=== PATIENT | male | born 1930 | race Caucasian/White ===

== ENCOUNTER 2016-12-11 11:38 | Inpatient (IN) | payer MEDICARE ==
[~2016-12-11] VITALS: Ht 182.9 cm; Wt 93.4 kg
[2016-12-11] MEDS ORDERED: ACETAMINOPHEN 325 MG TAB PO PRN (12:00)
[2016-12-11 13:16] LABS: ADD SCAN DIFF NO
[2016-12-11 13:19] LABS: BASOPHILS % 0.3 % (0.0-2.0); EOSINOPHILS # 0.3 10^3/ul (0.0-0.5); EOSINOPHILS % 4.4 % (0.0-7.0); HEMATOCRIT 43.5 % (42.0-52.0); LYMPHOCYTES % 12.2 % (15.0-51.0); MEAN CORPUSCULAR HEMOGLOBIN 28.6 pg (29.0-33.0); MEAN CORPUSCULAR HGB CONC 32.2 g/dl (32.0-37.0); MEAN CORPUSCULAR VOLUME 88.8 fl (82.0-101.0); MEAN PLATELET VOLUME 10.6 fl (7.4-10.4); MONOCYTE # 0.8 10^3/ul (0.3-0.9); MONOCYTES % 9.9 % (0.0-11.0); NEUTROPHIL # 5.7 10^3/ul (1.6-7.5); NEUTROPHILS % 72.9 % (39.0-77.0); PLATELET COUNT 142 10^3/UL (140-415); RED CELL DISTRIBUTION WIDTH 14.5 % (11.5-14.5); WHITE BLOOD COUNT 7.8 10^3/ul (4.8-10.8)
--- NOTE | 2016-12-11 13:31 | RADRPT ---
PROCEDURE: XR Chest 1 View. CLINICAL INDICATION: Abnormal breath sounds, abdominal pain. TECHNIQUE: AP view of the chest was obtained. COMPARISON: None. FINDINGS: The cardiomediastinal silhouette is within normal limits. Left-sided dual chamber pacemaker has its leads over the heart. Lungs are hyperexpanded. Retrocardiac opacity is identified. Diffuse mild i nterstitial prominence is seen in both lungs. Subsegmental atelectasis is noted in the right lower lobe. There scoliosis, convex to the right is seen. Diffuse osteopenia is noted. Degenerative hernandez ges are seen in the shoulders. IMPRESSION: Hyperexpanded lungs with diffuse mild interstitial prominence in both lungs. Interstitial prominenc e could be chronic. Findings could reflect COPD. Retrocardiac opacity that may reflect left lower lobe atelectasis or infiltrate combined with small pleural effusion. Subsegmental atelectasis in the right lower lobe. Severe scoliosis. RPTAT: AA .Geronimo Mccartney MD, MD Date Time Electronically viewed and signed by .Geronimo Mccartney MD, on 12/11/2016 13:31 .P/
[2016-12-11 13:36] LABS: INR 0.97; PROTIME 12.9 Sec (12.2-14.2)
--- NOTE | 2016-12-11 13:37 | RADRPT ---
PROCEDURE: XR Elbow 3 Views. CLINICAL INDICATION: Elbow pain and trauma TECHNIQUE: AP, lateral and oblique views of the left elbow performed. COMPARISON: None. FINDINGS: Fracture through the proximal ulna, just distal to the coronoid process is identified. 2 fixations pins are seen across this fracture site. Moderate distraction of the fracture fragments is observed . Medial and lateral fixation plates are identified across poorly visualized, healing distal humeru s fractures. A nondisplaced fracture through the lateral aspect of the coronoid process is best seen on the AP image. No gross destructive bony lesions are seen. Interosseous spaces appear preserved . The soft tissues are grossly unremarkable. IMPRESSION: Fracture through the proximal ulna, just distal to the coronoid process. 2 fixation pins project ac ross the fracture site. However moderate distraction of the fracture fragments is observed. This c ould reflect the patient's baseline after fixation surgery or could reflect traumatic increase in fr acture fragment distraction. Outside, prior films for comparison could be helpful. Status post fixation of healing distal humerus fractures. The underlying fracture sites are not wel l visualized. If further characterization is needed CT could be helpful. Nondisplaced fracture through the coronary process of the proximal ulna. If further characterization of the elbow is needed or there is suspicion for additional traumatic in jury CT should be considered. RPTAT: AA .Geronimo Mccartney MD, Date Time Electronically viewed and signed by .Geronimo Mccartney MD, on 12/11/2016 13:37 .P/
[2016-12-11 13:41] LABS: ANION GAP 15 (8-16); BLOOD UREA NITROGEN 19 mg/dl (7-20); CALCIUM 9.7 mg/dl (8.4-10.2); CARBON DIOXIDE 27 mmol/L (21-31); CHLORIDE 98 mmol/L (97-110); CREATININE 0.85 mg/dl (0.61-1.24); GLUCOSE 102 mg/dl (70-220); PARTIAL THROMBOPLASTIN TIME 21.3 Sec (25.0-35.0); POTASSIUM 4.5 mmol/L (3.5-5.1); SODIUM 135 mmol/L (135-144)
[2016-12-11 13:54] LABS: TROPONIN-I < 0.012 ng/ml (0.00-0.12)
--- NOTE | 2016-12-11 13:55 | ERA ---
ER Documentation Chief Complaint Date/Time DATE: 12/11/16 TIME: 13:51 Chief Complaint LEFT ELBOW FRACTURE, SENT BY DR GASTELUM FOR ADMISSION HPI Patient is a 86-year-old male who presents for left elbow fracture. The patient was sent by Dr. Gastelum from orthopedic surgery. He had surgery 3 months ago but the fracture fragments have shifted and Dr. Gastelum need to do a repeat surgery. Dr. Gastelum is already spoken with Dr. Alexis who will admit the patient to a medical surgical bed. The patient has limited range of motion secondary to pain. Pain comes and goes with motion. ROS All systems reviewed and are negative except as per history of present illness. Allergies Allergies: Coded Allergies: No Known Allergy (Unverified , 12/11/16) PMhx/Soc Positive for previous elbow fracture FmHx Family History: No diabetes Physical Exam Vitals Vital Signs Date Time Temp Pulse Resp B/P Pulse Ox O2 Delivery O2 Flow Rate FiO2 12/11/16 11:52 97.2 72 20 137/60 96 Physical Exam Const: No acute distress Head: Atraumatic Eyes: Normal Conjunctiva ENT: Normal External Ears, Nose and Mouth. Neck: Full range of motion..~ No meningismus. Resp: Clear to auscultation bilaterally Cardio: Regular rate and rhythm, no murmurs Abd: Soft, non tender, non distended. Normal bowel sounds Skin: Healed scar to the left elbow Back: No midline or flank tenderness Ext: No cyanosis, or edema Neur: Awake and alert Psych: Normal Mood and Affect Result Diagram: 12/11/16 1300 12/11/16 1300 Results 24 hrs Laboratory Tests Test 12/11/16 13:00 White Blood Count 7.810^3/ul Red Blood Count 4.9010^6/ul Hemoglobin 14.0g/dl Hematocrit 43.5% Mean Corpuscular Volume 88.8fl Mean Corpuscular Hemoglobin 28.6pg Mean Corpuscular Hemoglobin Concent 32.2g/dl Red Cell Distribution Width 14.5% Platelet Count 15320^3/UL Mean Platelet Volume 10.6fl Neutrophils % 72.9% Lymphocytes % 12.2% Monocytes % 9.9% Eosinophils % 4.4% Basophils % 0.3% Nucleated Red Blood Cells % 0.0/100WBC Neutrophils # 5.710^3/ul Lymphocytes # 1.010^3/ul Monocytes # 0.810^3/ul Eosinophils # 0.310^3/ul Basophils # 0.010^3/ul Nucleated Red Blood Cells # 0.010^3/ul Prothrombin Time 12.9Sec Prothrombin Time Ratio 1.0 INR International Normalized Ratio 0.97 Activated Partial Thromboplast Time 21.3Sec Sodium Level 135mmol/L Potassium Level 4.5mmol/L Chloride Level 98mmol/L Carbon Dioxide Level 27mmol/L Anion Gap 15 Blood Urea Nitrogen 19mg/dl Creatinine 0.85mg/dl Glucose Level 102mg/dl Calcium Level 9.7mg/dl Troponin I Pending Current Medications Medications (Trade) Dose Ordered Sig/Damien Route PRN Reason Start Time Stop Time Status Last Admin Dose Admin Ondansetron HCl (Zofran Inj) 4 mg BRIDGE ORDER PRN IV NAUSEA AND/OR VOMITING 12/11/16 12:00 12/12/16 11:59 Acetaminophen (Tylenol Tab) 650 mg ER BRIDGE PRN PO MILD PAIN/FEVER 12/11/16 12:00 12/12/16 11:59 Procedures/MDM EKG read by me: Rate/Rhythm: Paced rhythm at a rate of 69 Intervals: Prolonged QRS Impression: Paced rhythm X-ray left elbow shows nonhealing fracture fragments per radiology. Chest x-ray shows COPD per radiology. Patient is a 86-year-old male presents for left elbow surgery for a left elbow fracture. The patient will be admitted to the care of Dr. Alexis. Dr. Gastelum will see the patient for fixation. Departure Diagnosis: Primary Impression: Elbow fracture Qualified Code: S42.402A - Elbow fracture, left, closed, initial encounter Additional Impression: Elbow pain Qualified Code: M25.522 - Left elbow pain Condition: PILO Garcia MD Dec 11, 2016 13:55
[2016-12-11] MEDS ORDERED: FURO40SO4 PO (14:46)
[2016-12-11] MEDS ORDERED: LEVO88TA3 PO (14:47)
[2016-12-11] MEDS ORDERED: TAMS0.4C2 PO (14:47)
[2016-12-11] MEDS ORDERED: ATOR40TA68 PO ×2 (14:48→14:54)
[2016-12-11] MEDS ORDERED: morphine 4 MG/ML VIAL IV STA (17:21)
[2016-12-11] MEDS: ONDANSETRON 4 MG INJ IV PRN ×2 (17:48→19:15)
--- NOTE | 2016-12-11 18:24 | CONS ---
DATE OF ADMISSION: 12/11/2016 DATE OF CONSULTATION: 12/11/2016 CHIEF COMPLAINT AND HISTORY OF PRESENT ILLNESS: The patient is an 86-year-old gentleman who present s with a left elbow fracture. The patient had been seen by Dr. Shetty from orthopedic standpoint and h as had prior surgery and the fracture fragments have shifted and repeat surgery needs to be done. T he patient is complaining of limited range of motion. REVIEW OF SYSTEMS: HEAD: No history of headaches, focal weakness, or numbness. No history of strokes. EYES: No blurry vision or glaucoma. EARS, NOSE, THROAT: Noncontributory. NECK: No history of thyroid disease. CHEST: No history of bronchitis, hay fever, or asthma. The patient does not smoke. HEART: History of likely sick sinus syndrome, status post pacemaker placement and then subsequently had ICD placed about a year ago. Denies any chest pain. No history of GA. GASTROINTESTINAL: No constipation, diarrhea, change in bowel habits. GENITOURINARY: No dysuria, hematuria, kidney stones. PHYSICAL EXAMINATION: GENERAL: The patient is an average-built male who is presently in no acute distress. VITAL SIGNS: Pulse irregularly irregular. Blood pressure 137/60, afebrile, pulse ox 96% on room ai r. HEENT: Head normocephalic. No pallor, cyanosis, or icterus. Tongue is moist. NECK: Supple. No thyromegaly, bruits, or lymphadenopathy. LUNGS: Clinically clear. HEART: S1, S2 heard with grade II/ mid systolic murmur without conduction. ABDOMEN: Soft, nontender. No hepatosplenomegaly. EXTREMITIES: No edema. Homans sign is negative. LABORATORY DATA: Sodium 135, potassium 4.5. Troponin 0.01. CBC: WBC count 7.8, hematocrit 43.5, platelet count 142,000. PT/INR is 0.97, PTT 21.3. Chest x-ray shows hyperexpanded lungs, left lowe r lobe atelectasis versus infiltrate, small pleural effusion, severe scoliosis. X-ray of the elbow shows fracture through the proximal ulna and distraction of the fracture fragments noted. EKG shows paced rhythm with PVCs. IMPRESSION: 1. Left elbow fracture for operative reduction internal fixation. 2. Sick sinus syndrome, status post pacemaker placement followed by a defibrillator, likely has und erlying coronary artery disease. 3. Chronic obstructive pulmonary disease. PLAN: I would closely monitor electrolytes, namely potassium and magnesium. Would recommend cardia c clearance prior to the surgery given the significant cardiac history. Will discuss with Dr. Shetty regarding the patient's condition and cardiac followup. Dictated By: LISHA STEARNS MD SR/MITZY Conf#: [id number] DID#: [id number]
[2016-12-11] MEDS ORDERED: morphine 4 MG/ML VIAL IV PRN (19:30)
[2016-12-11] MEDS ORDERED: ONDANSETRON 4 MG INJ IV PRN (19:30)
[2016-12-11 20:30] VITALS: Ht 182.9 cm; Wt 93.4 kg
[2016-12-12 06:16] LABS: ADD SCAN DIFF NO
[2016-12-12 06:24] LABS: BASOPHILS % 0.3 % (0.0-2.0); EOSINOPHILS # 0.3 10^3/ul (0.0-0.5); EOSINOPHILS % 4.6 % (0.0-7.0); HEMATOCRIT 37.6 % (42.0-52.0); LYMPHOCYTES # 1.3 10^3/ul (0.8-2.9); LYMPHOCYTES % 18.1 % (15.0-51.0); MEAN CORPUSCULAR HEMOGLOBIN 28.3 pg (29.0-33.0); MEAN CORPUSCULAR HGB CONC 31.9 g/dl (32.0-37.0); MEAN CORPUSCULAR VOLUME 88.7 fl (82.0-101.0); MEAN PLATELET VOLUME 10.7 fl (7.4-10.4); MONOCYTES % 13.9 % (0.0-11.0); NEUTROPHIL # 4.6 10^3/ul (1.6-7.5); NEUTROPHILS % 62.8 % (39.0-77.0); PLATELET COUNT 122 10^3/UL (140-415); RED BLOOD COUNT 4.24 10^6/ul (4.70-6.10); RED CELL DISTRIBUTION WIDTH 14.5 % (11.5-14.5); WHITE BLOOD COUNT 7.3 10^3/ul (4.8-10.8)
[2016-12-12 06:54] LABS: CALCIUM 8.8 mg/dl (8.4-10.2); CREATININE 0.87 mg/dl (0.61-1.24); MAGNESIUM 1.7 mg/dl (1.7-2.5); POTASSIUM 4.6 mmol/L (3.5-5.1)
[2016-12-12 07:20] LABS: THYROID STIMULATING HORMONE 1.92 MIU/L (0.465-4.680)
[2016-12-12 07:57] VITALS: BP 109/63; RESP 18
[2016-12-12] MEDS: DEXTROSE 5%-0.225% NACL 1,000 ML IV SCH ×2 (09:42→22:50)
--- NOTE | 2016-12-12 09:47 | PN ---
DATE: 12/12/2016 SUBJECTIVE: The patient has no chest pain or shortness of breath. Admits to being a smoker for abo ut 20 years, and he stopped at 28. PHYSICAL EXAMINATION: GENERAL: The patient is afebrile. Temperature 98.5, blood pressure 109/63, pulse ox 90. CHEST: Decreased breath sounds at bases. HEART: S1, S2 with no definite gallops. EXTREMITIES: No edema. Homans sign is negative. LABORATORY: WBC count 7.3, hematocrit 37.6, potassium 4.6, magnesium 1.7. T4, TSH normal. Troponi n x2 is negative. IMPRESSION: 1. Left elbow fracture for open reduction internal fixation. 2. Sick-sinus syndrome, status post defibrillator, likely has underlying coronary artery disease. 3. Chronic obstructive pulmonary disease. 4. Hypomagnesemia. PLAN: Replace magnesium levels. We will request Dr. Shay for cardiology clearance. Also give 1 dose of statin p.o. for cardiac protection. Dictated By: LISHA STEARNS MD, SR/MITZY Conf#: [id number] DID#: [id number]
[2016-12-12] MEDS ORDERED: ATORVASTATIN 20 MG TAB PO ONE (10:00)
[2016-12-12 10:58] LABS: CHOL/HDL RATIO 2.4 RATIO
--- NOTE | 2016-12-12 13:52 | CONS ---
DATE OF ADMISSION: 12/11/2016 DATE OF CONSULTATION: 12/12/2016 REASON FOR CONSULTATION: Preoperative evaluation in a patient with cardiomyopathy with decreased left ventricular ejection fraction, PVCs in EKG. REQUESTING PHYSICIANS: Dr. Alexis and Dr. Shetty HISTORY OF PRESENT ILLNESS: Mr. Hebert is an 86-year-old male with a history of cardiomyopathy, AICD placement, diabetes mellitus, coronary artery disease, hypertension, ataxic gait, prior elbow surgery, who presents with pain and findings of fracture fragments that have shifted in the elbow. Upon arrival, temperature 97.2, blood pressure 137/60, pulse 72, respiratory rate 20, satting 96%. The patient's labs revealed a sodium 135, potassium 4.5, creatinine 0.85, BUN 19. Troponin negative. TSH 1.92. LDL 656, HDL 48. INR 0.97. White blood cell count 7.8, hemoglobin 14, platelet count 142. The patient underwent a chest x-ray revealing hyperexpanded lungs, diffuse mild interstitial prominence in both lungs, retrocardiac opacities, subsegmental atelectasis and an elbow x-ray that revealed fracture through the proximal ulna just distal to distal coronary process, fixation pins projecting across the fracture site, moderate distraction of the fracture fragments observed, nondisplaced fracture to the coronary process of proximal ulna, status post fixation of healing distal humeral fractures. The patient's electrocardiogram is ventricular paced at a rate of 69 with occasional PVCs. The patient at this time denies chest pain or shortness of breath, but it is not clear if this patient is a reliable historian. PAST MEDICAL HISTORY: As above in HPI with patient not currently remembering when he had AICD placed or who his primary fws faculty assistant is. MEDICATIONS CURRENTLY IN HOSPITAL: 1. IV fluid hydration. 2. Lipitor 20 mg at bedtime. 3. Zofran p.r.n. MEDICATIONS PRIOR TO ADMIT: 1. Tamsulosin. 2. Lasix 40 mg daily. 3. Synthroid. 4. Atorvastatin. 5. Additionally, the patient at home was on digoxin. 6. Metoprolol 25 mg daily. ALLERGIES: NO KNOWN DRUG ALLERGIES. SOCIAL HISTORY: No tobacco, EtOH, or illicit drug use. FAMILY HISTORY: No history of sudden cardiac or early CAD. REVIEW OF SYSTEMS: As above in HPI. CONSTITUTIONAL: No fevers, chills. PULMONARY: COPD. CARDIOVASCULAR: Cardiomyopathy. GASTROINTESTINAL: No vomiting. GENITOURINARY: No hematuria. MUSCULOSKELETAL: Degenerative joint disease. PSYCHIATRIC: The patient denies depression. NEUROLOGIC: No documented history of CVA. ENDOCRINE: Diabetes mellitus. Positive history of thyroid disease. PHYSICAL EXAMINATION: VITAL SIGNS: Temperature 98.5, blood pressure 109/63, pulse 100, respiratory rate 18, sat 90%. GENERAL: The patient is alert, awake, in no acute distress. NECK: JVP approximately 8 cm of water. CHEST: Fair air movement throughout. HEART: Regular rate and rhythm. S1, S2, a I/ systolic murmur, nondisplaced PMI. ABDOMEN: Positive bowel sounds, soft. EXTREMITIES: No edema, 1+ pulses bilaterally, posterior tibial. LABORATORY DATA: As above in HPI. Most recently from today, white count 7.3, hemoglobin 12.0, platelet count of 122. Sodium 134, potassium 4.6, creatinine 0.87, BUN of 20. INR of 0.97. IMAGING STUDIES: As above in HPI. No further imaging studies for my review at this time. ECG: As per HPI. No further electrocardiograms for review at this time. IMPRESSION: 1. Preoperative evaluation prior to revision of a prior elbow fracture surgery in a patient with history of cardiomyopathy, premature ventricular contractions in EKG, automatic implantable cardioverter-defibrillator. 2. Abnormal electrocardiogram with premature ventricular contractions. 3. History of cardiomyopathy, decreased left ventricular ejection fraction. 4. History of automatic implantable cardioverter-defibrillator placement. 5. Elbow fracture. 6. Hypothyroidism. 7. Dyslipidemia. RECOMMENDATIONS: 1. At this time, would continue to check serial EKGs to assess for significant changes, although the patient's EKG may remain paced and therefore be unrevealing. 2. Would complete a rule out for myocardial infarction to ensure that the patient has not had any recent coronary syndromes in anticipation of upcoming surgery. 3. I will reinitiate patient on baseline beta-jb at this time. 4. Check a 2D echo to further assess the patient's ejection fraction, wall motion, and any major valve abnormalities. 5. Would check troponins q.6 x2 to ensure this patient has not had any coronary syndromes prior to surgery. 6. Would continue the patient's statin therapy and adjust it according to a fasting lipid panel, which should be checked. 7. Depending on the results of the patient's 2D echo and cardiac enzyme analysis, we will be able to give you further risk stratification pertaining to this patient's current surgical candidacy. 8. After completion of the patient's above studies including a 2D echo assessment, I will give further recommendations pertaining to the current surgical candidacy of this patient. Thank you for allowing me to take part in the care of this patient. Dictated By: STEPHANIE ARIAS/MITZY Conf#: [id number] DID#: [id number] CC: LISHA ALEXIS MD; ORIANA;*[facility]* MTDD
--- NOTE | 2016-12-12 16:06 | CONS ---
DATE OF ADMISSION: 12/12/2016 DATE OF CONSULTATION: 12/12/2016 TYPE OF CONSULTATION: Orthopedic surgery. HISTORY OF PRESENT ILLNESS: The patient is an 86-year-old right-handed male who was initially seen by me around 09/04/2016 at the [facility]. At that time, he was found to have a s upracondylar fracture of the left humerus and was treated with the open reduction and internal fixat ion on 09/05/2016. At that time, because of the severity of the fracture involving the distal humer us, involving supracondylar area of the left humerus, an osteotomy of the olecranon process having t o be done in order to gain an access to the fractured area for open reduction and internal fixation. Following the open reduction and internal fixation of the distal humerus, the osteotomized olecran on process was treated with open reduction internal fixation using pins and wires technique. Throug hout the followup period for up to three months, the osteotomy site of the olecranon process of the left elbow was in good alignment and seemed to be healing; however, when the patient came back on for followup care, repeated x-rays showed a refracture of the olecranon process at the oste otomy site. On questioning, it sounded like he had to do a sudden forceful flexion of the left elbo w in the process of trying to regain his balance following a danger of slip and fall. PHYSICAL EXAMINATION: My examination at this time revealed minimal swelling around the left elbow. Range of motion of the left elbow was surprisingly good with almost full flexion and extension juani g with the satisfactory internal and external rotation. There was no neurovascular compromise. The re was no local trauma such as abrasion or contusion. X-rays of the left elbow at this time reveal the recurrent avulsion of the olecranon process with the separation at the fracture site. DIAGNOSTIC IMPRESSION: Recurrent fracture at the osteotomy site of the olecranon process of the lef t elbow. TREATMENT PLAN: To surgery for removal of the previous hardware and repeat open reduction and inter nal fixation of the avulsion fracture at the olecranon process osteotomy site. Dictated By: LOLA OSBORNE/MITZY Conf#: [id number] DID#: [id number]
[2016-12-12 16:46] VITALS: BP 116/56; PULSE 88; RESP 18
[2016-12-12 20:03] VITALS: BP 96/48; RESP 18
[2016-12-12 20:22] VITALS: PULSE 85
[2016-12-13] VITALS (14 sets, daily range): BP systolic 108–159; BP diastolic 58–80; PULSE 71–123; RESP 18–20
[2016-12-13] MEDS ORDERED: METOPROLOL (XL) 25 MG TAB PO SCH (09:00)
--- NOTE | 2016-12-13 09:55 | RADRPT ---
Vent Rate: 84 bpm RR Interval: 0 msec GA Interval: 180 msec QRS Duration: 146 msec QT Interval: 424 msec QTC Interval: 501 msec P-R-T [place]: 53 - 0 - 68 degrees Electronic ventricular pacemaker with atrial tracking No previous tracing available for comparison Electronically Signed By: Ernesto Cortes [id number]
[2016-12-13] MEDS ORDERED: REGADENOSON 0.4 MG/5 ML SYG ONE (11:47)
--- NOTE | 2016-12-13 12:24 | CONS ---
Date/Time of Note Date/Time of Note DATE: 12/13/16 TIME: 12:19 Assessment/Plan Assessment/Plan Chief Complaint/Hosp Course IMPRESSION: 1. Preoperative evaluation prior to revision of a prior elbow fracture surgery in a patient with history of cardiomyopathy, premature ventricular contractions in EKG, automatic implantable cardioverter-defibrillator. 2. Abnormal electrocardiogram with premature ventricular contractions. 3. History of cardiomyopathy, decreased left ventricular ejection fraction. 4. History of automatic implantable cardioverter-defibrillator placement. 5. Elbow fracture. 6. Hypothyroidism. 7. Dyslipidemia. 8.Positive troponin-minimal and now downtrended-? ischemia are marker of chronic cardiomyopathy Recc: -Tele -serial ecg's -Continue toprol XL -add low dose ACEI afterload reduction -follow volume status closely and consider decrease in IVF -Lexiscan stress test today pre-op to asses significance of positive troponin Problems: Consultation Date/Type/Reason Admit Date/Time Dec 12, 2016 at 11:09 Initial Consult Date 12/12/2016 Type of Consultation: Cardiology Reason for Consultation Pre-op/cardiomyopathy Referring Provider: LISHA STEARNS MD Exam/Review of Systems Vital Signs Vitals Vital Signs Date Time Temp Pulse Resp B/P Pulse Ox O2 Delivery O2 Flow Rate FiO2 12/13/16 12:00 97.6 78 18 148/79 97 12/12/16 16:46 Room Air Intake and Output 12/12/16 12/12/16 12/13/16 15:00 23:00 07:00 Intake Total 1140 ml Output Total 200 ml Balance 940 ml Exam Review of Systems: CONSTITUTIONAL: No fevers, chills. PULMONARY: No sob CARDIOVASCULAR: No chest pain/palpitations GASTROINTESTINAL: No nausea/vomiting. GENITOURINARY: No hematuria/dysuria. MUSCULOSKELETAL: No myagias/arthalgias. PSYCHIATRIC: The patient denies depression. NEUROLOGIC: mild generalized weakness Constitutional: alert Psych: no complaints Head: normocephalic ENMT: mucosa pink and moist Neck: jvd (9 cm water), supple Respiratory: diminished breath sounds (at bases/B) Cardiovascular: regular rate and rhythm Gastrointestinal: non-tender Musculoskeletal: muscle tone (normal) Extremities: edema (none) Neurological: other (No focal deficits) Results Result Diagram: 12/12/1652112/12/16521 Results 24 hrs Laboratory Tests Test 12/12/16 14:00 12/12/16 18:28 12/13/16 05:33 12/13/16 08:39 Troponin I 0.630 *H 0.480 *H 0.278 *H Bedside Glucose 120 Medications Medications Current Medications Morphine Sulfate (morphine) 3 mg Q3 PRN IV PAIN LEVEL 6-10 Last administered on 12/11/16 19:15; Admin Dose 3 MG; Start 12/11/16 at 19:30 Ondansetron HCl 4 mg 4 mg Q6 PRN IV NAUSEA; Start 12/11/16 at 19:30 Dextrose/Sodium Chloride (D5-1/4ns) 1,000 ml @ 75 mls/hr [id number] IV Last administered on 12/12/16 22:50; Admin Dose 75 MLS/HR; Start 12/12/16 at 09:30 Metoprolol Succinate (Toprol Xl) 12.5 mg DAILY PO Last administered on 10:06; Admin Dose 12.5 MG; Start 12/13/16 at 09:00 STEPHANIE BROWNLEE Dec 13, 2016 12:24
--- NOTE | 2016-12-13 13:04 | CARRPT ---
DATE OF PROCEDURE: 12/13/2016 REASON FOR STRESS TESTING: Positive troponin in a preoperative patient, assess significance, rule o ut ischemia. BASELINE VITAL SIGNS AND ELECTROCARDIOGRAM: Pulse 75, blood pressure 138/73. Electrocardiogram was sinus rhythm with demand ventricular pacing and occasional PVCs. PROCEDURE: The patient underwent standard Lexiscan infusion protocol over 10 seconds followed by ra diolabeled tracer. The patient's test was stopped due to completion of protocol. Maximal achieved blood pressure during the test 148/63. Maximum heart rate during the test 89. ELECTROCARDIOGRAM FINDINGS: The patient did not develop any new Lexiscan-induced ST or T-wave m[place] es from baseline abnormalities. Patient had frequent PVCs and remained primarily ventricular paced throughout stress testing. SYMPTOMS: The patient had no complaints of chest pain or shortness of breath during stress testing. IMPRESSION: 1. No Lexiscan-induced ST or T-wave changes from baseline abnormalities that are diagnostic of isch emia. 2. No complaints of chest pain or shortness of breath during stress testing. 3. Premature ventricular contractions frequently throughout stress testing. 4. Report of nuclear images to follow in separate dictation. Dictated By: STEPHANIE ARIAS/MITZY Conf#: [id number] DID#: [id number] CC: Dr. Tovar ; DARIEN GASTELUM MD;*[facility]*
[2016-12-13] MEDS: DEXTROSE 5%-0.225% NACL 1,000 ML IV SCH (14:52)
--- NOTE | 2016-12-13 15:12 | PN ---
DATE: 12/13/2016 SUBJECTIVE: Patient has no chest pain or shortness of breath. PHYSICAL EXAMINATION VITAL SIGNS: Temperature 97.6, blood pressure 148/79, O2 sat 97%. HEENT: Head normocephalic. CHEST: Clinically clear. HEART: S1, S2 heard with no definite gallops. EXTREMITIES: No edema. Homans sign is negative. LABORATORY DATA: Troponin from this morning 0.278. Dr. Shay cardiac recommendations greatly appreciated. Patient had a Lexiscan which showed no Raymundo iscan-induced ST or T-wave changes. The nuclear images are pending. If negative the patient will be cleared for surgery per Dr. Shetty. Dictated By: LISHA STEARNS MD SR/NTS Conf#: [id number] DID#: [id number]
--- NOTE | 2016-12-13 19:48 | RADRPT ---
Echocardiogram Report Patient Name: HEATHER EWING Gender: Male Date: 1930 Study Date: 12-Dec-2016 [employer] Operator: [facility] Location: 628 Ref. Physician: LISHA STEARNS Quality: Adequate Procedures: Transthoracic echocardiogram with complete 2D, M-Mode, and doppler examination. Indications: Pre-op clearance. 2D/M Mode Doppler Measurement Value Normal Ranges Measurement Value Normal Ranges LVIDd 2D 3.8 3.5 - 5.6 cm DAMON Vmax 2.6 cm2 LVIDs 2D 2.6 2.1 - 4.1 cm DAMON VTI 3.6 cm2 LVPWd 2D 1.2 0.6 - 1.1 cm LVOT Peak Gabo 0.9 m/sec IVSd 2D 1.3 0.6 - 1.1 cm LVOT Peak PG 3.6 mmHg AoR Diam 2D 3.9 2.0 - 3.7 cm TR Peak Gabo 2.9 m/sec EDV 2D 62.6 cm3 TR Peak PG 34.4 mmHg ESV 2D 17.4 cm3 LA Dimen 2D 3.9 2.3 - 4.0 cm LVOT Diam 2.4 cm Findings Left Ventricle: Normal left ventricular systolic function. Normal left ventricular cavity size. Mild concentric left ventricular hypertrophy. Moderate left ventricular systolic dysfunction. Ejection fraction is visually estimated at 3540 %. Tissue Doppler/Mitral Doppler indices are consistent with impaired relaxation (Stage I diastolic dysfunction). Right Ventricle: Normal right ventricular systolic function. Mild enlargement of right ventricle. Pacemaker right heart. Left Atrium: The left atrium is normal in size. Right Atrium: There is mild enlargement of right atrium. Mitral Valve: Mild mitral leaflet calcification. Trace mitral regurgitation. Aortic Valve: No significant aortic stenosis or insufficiency. Aortic sclerosis without stenosis. Tricuspid Valve: Normal appearance of the tricuspid valve. Estimated peak PA systolic pressure 42 mmHg. There is mild tricuspid regurgitation. Pericardium: Normal pericardium with no significant pericardial effusion. Aorta: Normal aortic root. IVC: Dilated IVC with respiratory collapse consistent with elevated right atrial pressure. Conclusions 1.Normal left ventricular systolic function. Normal left ventricular cavity size. Mild concentric left ventricular hypertrophy. Moderate left ventricular systolic dysfunction. Ejection fraction is visually estimated at 35-40 %. Tissue Doppler/Mitral Doppler indices are consistent with impaired relaxation (Stage I diastolic dysfunction). 2.Mild enlargement of right ventricle. Pacemaker right heart. 3.There is mild enlargement of right atrium. 4.Trace mitral regurgitation. 5.Estimated peak PA systolic pressure 42 mmHg. 6.There is mild tricuspid regurgitation. Electronically Signed By: Andrew Shay 13-Dec-2016 19:47:28 -0700 Patient Name: HEATHER EWING Study Date: 12-Dec-2016 [id number]
[2016-12-13] MEDS: METOPROLOL (XL) 25 MG TAB PO SCH (22:21)
[2016-12-13] MEDS ORDERED: MAGNESIUM SULFATE 1 GM/D5W 100 ML IVPB ONE (22:30)
[2016-12-14] VITALS (22 sets, daily range): BP systolic 114–180; BP diastolic 50–88; PULSE 60–126; RESP 16–26
[2016-12-14] MEDS: DEXTROSE 5%-0.225% NACL 1,000 ML IV SCH ×2 (01:30→13:38)
[2016-12-14 06:41] LABS: ADD SCAN DIFF NO
[2016-12-14 06:57] LABS: BASOPHILS % 0.2 % (0.0-2.0); EOSINOPHILS # 0.4 10^3/ul (0.0-0.5); EOSINOPHILS % 7.2 % (0.0-7.0); HEMATOCRIT 37.7 % (42.0-52.0); HEMOGLOBIN 12.3 g/dl (14.0-18.0); LYMPHOCYTES # 1.1 10^3/ul (0.8-2.9); LYMPHOCYTES % 21.4 % (15.0-51.0); MEAN CORPUSCULAR HEMOGLOBIN 28.7 pg (29.0-33.0); MEAN CORPUSCULAR HGB CONC 32.6 g/dl (32.0-37.0); MEAN CORPUSCULAR VOLUME 87.9 fl (82.0-101.0); MEAN PLATELET VOLUME 10.8 fl (7.4-10.4); MONOCYTE # 0.7 10^3/ul (0.3-0.9); MONOCYTES % 12.9 % (0.0-11.0); NEUTROPHIL # 3.1 10^3/ul (1.6-7.5); NEUTROPHILS % 58.1 % (39.0-77.0); PLATELET COUNT 157 10^3/UL (140-415); RED BLOOD COUNT 4.29 10^6/ul (4.70-6.10); RED CELL DISTRIBUTION WIDTH 14.2 % (11.5-14.5); WHITE BLOOD COUNT 5.3 10^3/ul (4.8-10.8)
[2016-12-14 07:19] LABS: CALCIUM 8.9 mg/dl (8.4-10.2); CREATININE 0.67 mg/dl (0.61-1.24); POTASSIUM 4.3 mmol/L (3.5-5.1)
[2016-12-14] MEDS: METOPROLOL (XL) 25 MG TAB PO SCH ×2 (08:45→20:54)
[2016-12-14] MEDS: LISINOPRIL 5 MG TAB PO SCH (08:45)
--- NOTE | 2016-12-14 12:35 | CONS ---
Date/Time of Note Date/Time of Note DATE: 12/14/16 TIME: 12:30 Assessment/Plan Assessment/Plan Chief Complaint/Hosp Course IMPRESSION: 1. Preoperative evaluation prior to revision of a prior elbow fracture surgery in a patient with history of cardiomyopathy, premature ventricular contractions in EKG, automatic implantable cardioverter-defibrillator.-Lexiscan 12/13/16 NO ischemia EF 43%, Echo EF 35-40% but no sig contraindicated valvular lesion. Thus patient is ok to proceed at moderate risk without further non-invasive evaluation on current medications continued pre-post operatively 2. Abnormal electrocardiogram with premature ventricular contractions. 3. History of cardiomyopathy, decreased left ventricular ejection fraction. 4. History of automatic implantable cardioverter-defibrillator placement. 5. Elbow fracture. 6. Hypothyroidism. 7. Dyslipidemia. 8.Positive troponin-minimal and now downtrended-? ischemia are marker of chronic cardiomyopathy 9.SVT-recurrent overnight to 120's Recc: -Tele -Continue toprol XL but will increase to suppress further bouts of SVT which patient has been having recurrent short runs of -add low dose ACEI afterload reduction -follow volume status closely and consider decrease in IVF -pnding surgery. Check post-op ECG Problems: Consultation Date/Type/Reason Admit Date/Time Dec 12, 2016 at 11:09 Initial Consult Date 12/12/2016 Type of Consultation: Cardiology Reason for Consultation Pre-op Referring Provider: LISHA STEARNS MD Exam/Review of Systems Vital Signs Vitals Vital Signs Date Time Temp Pulse Resp B/P Pulse Ox O2 Delivery O2 Flow Rate FiO2 12/14/16 12:16 60 12/14/16 11:32 98.0 16 161/75 99 12/12/16 16:46 Room Air Intake and Output 12/13/16 12/13/16 12/14/16 15:00 23:00 07:00 Intake Total 360 ml 1360 ml Output Total 600 ml 1200 ml Balance -240 ml 160 ml Exam Review of Systems: CONSTITUTIONAL: No fevers, chills. PULMONARY: No sob CARDIOVASCULAR: No chest pain/palpitations GASTROINTESTINAL: No nausea/vomiting. GENITOURINARY: No hematuria/dysuria. MUSCULOSKELETAL: No myagias/arthalgias. PSYCHIATRIC: The patient denies depression. NEUROLOGIC: No weakness Constitutional: alert Psych: no complaints Head: normocephalic ENMT: mucosa pink and moist Neck: jvd (9 cm water), supple Respiratory: diminished breath sounds Cardiovascular: regular rate and rhythm Gastrointestinal: non-tender, soft Musculoskeletal: muscle tone (normal) Extremities: edema (none) Neurological: other (No focal deficits) Results Result Diagram: 12/14/16 0610 12/14/16 0610 Results 24 hrs Laboratory Tests Test 12/14/16 06:10 12/14/16 11:38 White Blood Count 5.3 # Red Blood Count 4.29 L Hemoglobin 12.3 L Hematocrit 37.7 L Mean Corpuscular Volume 87.9 Mean Corpuscular Hemoglobin 28.7 L Mean Corpuscular Hemoglobin Concent 32.6 Red Cell Distribution Width 14.2 Platelet Count 157 # Mean Platelet Volume 10.8 H Neutrophils % 58.1 Lymphocytes % 21.4 Monocytes % 12.9 H Eosinophils % 7.2 H Basophils % 0.2 Nucleated Red Blood Cells % 0.0 Neutrophils # 3.1 Lymphocytes # 1.1 Monocytes # 0.7 Eosinophils # 0.4 Basophils # 0.0 Nucleated Red Blood Cells # 0.0 Sodium Level 135 Potassium Level 4.3 Chloride Level 102 Carbon Dioxide Level 28 Anion Gap 9 Blood Urea Nitrogen 12 Creatinine 0.67 Glucose Level 103 Calcium Level 8.9 Bedside Glucose 140 Medications Medications Current Medications Morphine Sulfate (morphine) 3 mg Q3 PRN IV PAIN LEVEL 6-10 Last administered on 12/11/16 19:15; Admin Dose 3 MG; Start 12/11/16 at 19:30 Ondansetron HCl 4 mg 4 mg Q6 PRN IV NAUSEA; Start 12/11/16 at 19:30 Dextrose/Sodium Chloride (D5-1/4ns) 1,000 ml @ 75 mls/hr [id number] IV Last administered on 12/13/16 14:52; Admin Dose 75 MLS/HR; Start 12/12/16 at 09:30 Lisinopril (Zestril) 5 mg DAILY PO Last administered on 12/14/16 08:45; Admin Dose 5 MG; Start 12/14/16 at 09:00 Metoprolol Succinate (Toprol Xl) 12.5 mg BID PO Last administered on 12/14/16 08:45; Admin Dose 12.5 MG; Start 12/13/16 at 22:00 STEPHANIE BROWNLEE 9, 2017 12:35
[2016-12-14] MEDS ORDERED: BUPIVACAINE 0.5%/EPI (SDV) 30 ML INJ ONE (15:20)
--- NOTE | 2016-12-14 15:37 | HPN ---
Date/Time of Note Date/Time of Note DATE: 12/14/16 TIME: 15:37 Interval H&P Admission Note Pt. seen H&P reviewed: No system changes JULES GASTELUM MD Dec 14, 2016 15:37
[2016-12-14] MEDS ORDERED: LIDOCAINE 1% (MDV) 20 ML INJ ONE (15:50)
[2016-12-14] MEDS ORDERED: PROPOFOL 20 ML ONE (15:50)
[2016-12-14] MEDS ORDERED: FENTAnyl 50 MCG/ML VIAL ONE ×2 (15:50→18:00)
[2016-12-14] MEDS ORDERED: ETOMIDATE 20 MG INJ ONE (15:50)
[2016-12-14] MEDS ORDERED: ROPIVACAINE 0.5 % 30 ML VIAL ONE (15:55)
[2016-12-14] MEDS ORDERED: PHENYLephrine (100 MCG/ML) 5ML SYG ONE (16:24)
[2016-12-14] MEDS ORDERED: CEFAZOLIN 1 GM INJ ONE (16:34)
[2016-12-14] MEDS ORDERED: DEXAMETHASONE 4 MG/ML 1 ML INJ ONE (16:39)
[2016-12-14] MEDS ORDERED: ONDANSETRON 4 MG INJ ONE (16:39)
[2016-12-14] MEDS ORDERED: FAMOTIDINE 20 MG INJ ONE (16:39)
[2016-12-14] MEDS ORDERED: BUPIVACAINE 0.5%/EPI (SDV) 30 ML INJ INJ ONE (17:02)
[2016-12-14] MEDS ORDERED: HYDROmorphONE (0.2 MG/ML) 10ML SYG IV PRN (17:30)
[2016-12-14] MEDS ORDERED: ONDANSETRON 4 MG INJ IV PRN (17:30)
[2016-12-14] MEDS ORDERED: FENTAnyl 50 MCG/ML VIAL IV PRN (17:30)
[2016-12-14] MEDS ORDERED: MEPERIDINE 25 MG INJ IV PRN (17:30)
[2016-12-14] MEDS ORDERED: hydrALAzine 20 MG INJ ONE (18:59)
[2016-12-14] MEDS ORDERED: morphine 2 MG INJ IV PRN (19:00)
[2016-12-14] MEDS ORDERED: NACL 0.9% 3 ML SYG IV SCH (19:00)
--- NOTE | 2016-12-14 19:50 | RADRPT ---
PROCEDURE: X-ray left elbow CLINICAL INDICATION: Postoperative for reduction and fixation of fracture of the proximal left uln a. TECHNIQUE: 2 views of the left elbow COMPARISON: 12/11/2016 FINDINGS: Bilateral distal femoral diaphysis metaphysis side plate and screw fixators with plate and screw fix ators over the distal ulnar diaphysis and metaphysis. There is no evident hardware complication. There is a fracture of the distal ulnar metaphysis, just distal to the olecranon, with improved jade omic alignment of the fracture fragment over the interval. Previously seen pin and wire fixation in the proximal left ulna are removed. No new fractures seen. Surgical skin alvino are seen over the dorsal elbow and proximal forearm. IMPRESSION: 1. Interval removal of pain and wire fixation at fracture of the proximal left ulna. 2. New dorsal plate and screw fixation over the fracture of the proximal left ulna, without evident hardware complication. 3. Improved anatomic alignment of the ulna fracture fragment. 4. Again seen are bilateral plate and screw fixators over the distal humerus, without evident hardw are complication. RPTAT: [facility] Physician Wen Date Time Electronically viewed and signed by Physician Wen on 12/14/2016 19:50 RS/
--- NOTE | 2016-12-14 20:04 | OPR ---
DATE OF OPERATION: 12/14/2016 PREOPERATIVE DIAGNOSIS: Recurrent fracture of the olecranon process of the left elbow status post o pen reduction and internal fixation following olecranon osteotomy for open reduction and internal fi xation of the supracondylar fracture of the left humerus. POSTOPERATIVE DIAGNOSIS: Recurrent fracture of the olecranon process of the left elbow status post open reduction and internal fixation following olecranon osteotomy for open reduction and internal f ixation of the supracondylar fracture of the left humerus. PROCEDURE PERFORMED: 1. Removal of the fixation, pins and wires, from the left elbow. 2. Open reduction and internal fixation of the recurrent fracture of the olecranon process of the l eft elbow using [employer] plate and screws. ANESTHESIA: General anesthesia. SURGEON: Lola Shetty MD PROCEDURES AND FINDINGS: Under general anesthesia, the patient was placed in supine position upon t he operating table. Usual prep and drape was done, exposing the left upper extremity. A tourniquet was placed over the proximal portion of the left arm and was inflated up to 250 mmHg prior to the p rocedure. Tourniquet was released around 90 minutes during the surgery after main procedure is done . The left elbow was approached through the previous skin incision by blunt and sharp dissection. 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 The fibrous no nunion was all taken down. Of course the fixation pins and wires were all removed. After approxima tion of the fracture, this was internally fixed using Schmidt elbow system plate from [employer]. At the e nd of the internal fixation, the alignment of the fracture was satisfactory and the position of the fixation device was ideal. After hemostasis and irrigation, closure of the incision was carried out using 0 Vicryl for muscle and fascia and 2-0 Vicryl for subcutaneous tissues. Final skin closure w as carried out with skin alvino. Usual sterile pressure dressings were applied. The patient tolerated the entire procedure very well and was sent to the recovery room in excellent condition. Dictated By: LOLA OSBORNE/NTS Conf#: [id number] DID#: [id number]
[2016-12-14] MEDS: D5W-0.45 NACL + KCL 20 MEQ 1,000 ML IV SCH (20:48)
[2016-12-14] MEDS: CEFAZOLIN 1 GM/50 ML (PMX) 50 ML IVPB SCH (20:49)
[2016-12-15] VITALS (14 sets, daily range): BP systolic 107–156; BP diastolic 51–77; PULSE 60–132; RESP 16–20
[2016-12-15] MEDS: CEFAZOLIN 1 GM/50 ML (PMX) 50 ML IVPB SCH ×2 (05:34→10:50)
[2016-12-15] MEDS: D5W-0.45 NACL + KCL 20 MEQ 1,000 ML IV SCH (05:35)
--- NOTE | 2016-12-15 08:44 | RADRPT ---
PROCEDURE: X-ray fluoroscopy guidance CLINICAL INDICATION: Left elbow fracture fixation, fluoroscopic guidance. TECHNIQUE: Fluoroscopic guidance was utilized for an intraoperative procedure. COMPARISON: None available FINDINGS: Fluoroscopic guidance was utilized for and intraoperative procedure. 44 seconds of fluoroscopy time was utilized for the procedure. 3 x-ray images were obtained during the procedure in progress. Final images demonstrate fracture fragments in near anatomic alignment. IMPRESSION: X-ray fluoroscopic guidance utilized for intraoperative procedure. Fracture fragments in near anatomic alignment. Please see procedure note for details. RPTAT: AA .Geronimo Mccartney MD, MD Date Time Electronically viewed and signed by .Geronimo Mccartney MD, MD on 12/15/2016 08:43 .P/
[2016-12-15] MEDS: LISINOPRIL 5 MG TAB PO SCH (09:00)
[2016-12-15] MEDS: METOPROLOL (XL) 25 MG TAB PO SCH ×2 (09:00→20:49)
[2016-12-15] MEDS: ENOXAPARIN 40 MG/0.4 ML SYG SC SCH (09:03)
--- NOTE | 2016-12-15 11:13 | CONS ---
Date/Time of Note Date/Time of Note DATE: 12/15/16 TIME: 11:08 Assessment/Plan Assessment/Plan Chief Complaint/Hosp Course IMPRESSION: 1. Preoperative evaluation prior to revision of a prior elbow fracture surgery in a patient with history of cardiomyopathy, premature ventricular contractions in EKG, automatic implantable cardioverter-defibrillator.-Lexiscan 12/13/16 NO ischemia EF 43%, Echo EF 35-40% but no sig contraindicated valvular lesion. Thus patient is ok to proceed at moderate risk without further non-invasive evaluation on current medications continued pre-post operatively 2. Abnormal electrocardiogram with premature ventricular contractions. 3. History of cardiomyopathy, decreased left ventricular ejection fraction. 4. History of automatic implantable cardioverter-defibrillator placement. 5. Elbow fracture. 6. Hypothyroidism. 7. Dyslipidemia. 8.Positive troponin-minimal and now downtrended-? ischemia are marker of chronic cardiomyopathy 9.SVT-recurrent overnight to 120's-no recurrence in last 24 hours Recc: -Tele -Continue toprol XL/ACEI -add low dose ACEI afterload reduction -Volume status closely and HL IVF -Check post-op ECG Problems: Consultation Date/Type/Reason Admit Date/Time Dec 12, 2016 at 11:09 Initial Consult Date 12/12/2016 Type of Consultation: Cardiology Reason for Consultation pre-op/cardiomyopathy Referring Provider: LISHA STEARNS MD Exam/Review of Systems Vital Signs Vitals Vital Signs Date Time Temp Pulse Resp B/P Pulse Ox O2 Delivery O2 Flow Rate FiO2 12/15/16 11:05 98.3 78 16 109/55 97 12/15/16 10:53 Nasal Cannula 2.0 Intake and Output 12/14/16 12/14/16 12/15/16 15:00 23:00 07:00 Intake Total 360 ml 400 ml 1400 ml Output Total 400 ml 650 ml 500 ml Balance -40 ml -250 ml 900 ml Exam Review of Systems: CONSTITUTIONAL: No fevers, chills. PULMONARY: No sob CARDIOVASCULAR: No chest pain/palpitations GASTROINTESTINAL: No nausea/vomiting. GENITOURINARY: No hematuria/dysuria. MUSCULOSKELETAL: pain in elbow PSYCHIATRIC: no depression NEUROLOGIC: No weakness Constitutional: alert Psych: no complaints Head: normocephalic ENMT: mucosa pink and moist Neck: jvd (9 cm water), supple Respiratory: diminished breath sounds Cardiovascular: regular rate and rhythm Gastrointestinal: non-tender, soft Musculoskeletal: muscle tone Extremities: edema (none) Neurological: other (No focal deficits) Results Result Diagram: 12/14/16 0610 12/14/16 0610 Results 24 hrs Laboratory Tests Test 12/14/16 11:38 12/14/16 18:19 Bedside Glucose 140 160 Medications Medications Current Medications Morphine Sulfate (morphine) 3 mg Q3 PRN IV PAIN LEVEL 6-10 Last administered on 12/11/16 19:15; Admin Dose 3 MG; Start 12/11/16 at 19:30 Ondansetron HCl (Zofran Inj) 4 mg Q6 PRN IV NAUSEA; Start 12/11/16 at 19:30 Lisinopril (Zestril) 5 mg DAILY PO Last administered on 12/15/16 09:00; Admin Dose 5 MG; Start 12/14/16 at 09:00 Metoprolol Succinate 25 mg 25 mg BID PO Last administered on 12/15/16 09:00; Admin Dose 25 MG; Start 12/14/16 at 21:00 Cefazolin Sodium 50 ml @ 100 mls/hr Q8H IVPB Last administered on 12/15/16 10 :50; Admin Dose 100 MLS/HR; Start 12/14/16 at 19:00; Stop 12/15/16 at 11:29 Potassium Chloride/Dextrose/ Sod Cl (D5-1/2ns + KCl 20 Meq) 1,000 ml @ 100 mls/ hr Q10H IV Last administered on 12/15/16 05:35; Admin Dose 100 MLS/HR; Start 12/14/16 at 18:49 Enoxaparin Sodium (Lovenox) 40 mg DAILY SC Last administered on 12/15/16 09:03 ; Admin Dose 40 MG; Start 12/15/16 at 09:00 Morphine Sulfate (morphine) 2 mg Q2H PRN IV PAIN; Start 12/14/16 at 19:00 Acetaminophen/ Hydrocodone Bitart ([place] (5/325)) 1 tab Q3H PRN PO PAIN; Start 12/14/16 at 19:00 STEPHANIE BROWNLEE 10, 2017 11:13
[2016-12-15] MEDS ORDERED: MAGNESIUM CITRATE 300 ML BTL PO ONE (15:30)
--- NOTE | 2016-12-15 15:49 | PN ---
DATE: 12/15/2016 SUBJECTIVE: The patient has occasional cough. Denies any chest pain or shortness of breath. Minim al left elbow pain. PHYSICAL EXAMINATION: GENERAL: The patient is afebrile. Blood pressure 109/55, O2 sats 97%. CHEST: Revealed decreased breath sounds at bases. HEART: S1, S2 heard with no definite gallops. EXTREMITIES: No edema. Homans sign is negative. LABORATORY DATA: WBC count 5.3, hematocrit 37.7 as of yesterday. IMPRESSION: 1. Status post open reduction internal fixation of recurrent fracture of the olecranon process of t he left elbow by Dr. Shetty yesterday. 2. History of cardiomyopathy. 3. Cardiac arrhythmia with premature ventricular contractions. 4. Status post automatic implantable cardioverter-defibrillator placement. 5. Dyslipidemia. 6. Increased troponins. So far no evidence of an acute myocardial infarction. PLAN: Continue recommendations per Dr. Shay. Follow recommendations from orthopedic standpoint by Dr. Shetty. Dictated By: LISHA STEARNS MD, SR/MITZY Conf#: [id number] DID#: [id number]
--- NOTE | 2016-12-15 16:45 | RADRPT ---
Vent Rate: 74 bpm RR Interval: 0 msec [place] Interval: 192 msec QRS Duration: 152 msec QT Interval: 444 msec QTC Interval: 492 msec P-R-T [place]: 54 - -81 - -4 degrees Electronic ventricular pacemaker with atrial tracking No previous tracing available for comparison Electronically Signed By: Ernesto Cortes [id number]
[2016-12-15] MEDS: HYDROCODONE/APAP (5/325) TAB PO PRN (20:49)
[2016-12-15] MEDS: MUPIROCIN 2% 22 GM OINT TOP SCH (20:49)
[2016-12-16] VITALS (12 sets, daily range): BP systolic 112–161; BP diastolic 56–80; PULSE 60–66; RESP 16–18
[2016-12-16] MEDS: MUPIROCIN 2% 22 GM OINT TOP SCH ×2 (09:01→20:23)
[2016-12-16] MEDS: LISINOPRIL 5 MG TAB PO SCH (09:02)
[2016-12-16] MEDS: METOPROLOL (XL) 25 MG TAB PO SCH ×2 (09:02→20:22)
[2016-12-16] MEDS: ENOXAPARIN 40 MG/0.4 ML SYG SC SCH (09:11)
--- NOTE | 2016-12-16 11:48 | CONS ---
Date/Time of Note Date/Time of Note DATE: 12/16/16 TIME: 11:46 Assessment/Plan Assessment/Plan Chief Complaint/Hosp Course IMPRESSION: 1. Preoperative evaluation prior to revision of a prior elbow fracture surgery in a patient with history of cardiomyopathy, premature ventricular contractions in EKG, automatic implantable cardioverter-defibrillator.-Lexiscan 12/13/16 NO ischemia EF 43%, Echo EF 35-40% but no sig contraindicated valvular lesion. Thus patient is ok to proceed at moderate risk without further non-invasive evaluation on current medications continued pre-post operatively 2. Abnormal electrocardiogram with premature ventricular contractions. 3. History of cardiomyopathy, decreased left ventricular ejection fraction. 4. History of automatic implantable cardioverter-defibrillator placement. 5. Elbow fracture. 6. Hypothyroidism. 7. Dyslipidemia. 8.Positive troponin-minimal and now downtrended-? ischemia are marker of chronic cardiomyopathy 9.SVT-recurrent overnight to 120's-no recurrence in last 48 hours 10.HTN-labile Recc: -Tele -Continue toprol XL/ACEI -Volume status closely with spot dose lasix as necessary -Routine post-op care Problems: Consultation Date/Type/Reason Admit Date/Time Dec 12, 2016 at 11:09 Initial Consult Date 12/12/2016 Type of Consultation: Cardiology Reason for Consultation Cardiomyopathy/pre-op Referring Provider: LISHA STEARNS MD Exam/Review of Systems Vital Signs Vitals Vital Signs Date Time Temp Pulse Resp B/P Pulse Ox O2 Delivery O2 Flow Rate FiO2 12/16/16 08:15 66 12/16/16 07:38 Nasal Cannula 2.0 12/16/16 07:27 97.8 17 122/58 94 Intake and Output 12/15/16 12/15/16 12/16/16 15:00 23:00 07:00 Intake Total 1100 ml 500 ml Output Total 750 ml 1350 ml Balance 350 ml -850 ml Exam Review of Systems: CONSTITUTIONAL: No fevers, chills. PULMONARY: No sob CARDIOVASCULAR: No chest pain/palpitations GASTROINTESTINAL: No nausea/vomiting. GENITOURINARY: No hematuria/dysuria. MUSCULOSKELETAL: No myagias/arthalgias. PSYCHIATRIC: The patient denies depression. NEUROLOGIC: No weakness Constitutional: alert Psych: no complaints Head: normocephalic ENMT: mucosa pink and moist Neck: jvd (8 cm water), supple Respiratory: diminished breath sounds (at bases/B) Cardiovascular: regular rate and rhythm Gastrointestinal: non-tender, soft Musculoskeletal: muscle tone (normal) Extremities: edema (none) Neurological: other (No focal deficits) Results Result Diagram: 12/14/16 0610 12/14/16 0610 Medications Medications Current Medications Morphine Sulfate (morphine) 3 mg Q3 PRN IV PAIN LEVEL 6-10 Last administered on 12/11/16 19:15; Admin Dose 3 MG; Start 12/11/16 at 19:30 Ondansetron HCl (Zofran Inj) 4 mg Q6 PRN IV NAUSEA; Start 12/11/16 at 19:30 Lisinopril (Zestril) 5 mg DAILY PO Last administered on 12/16/16 09:02; Admin Dose 5 MG; Start 12/14/16 at 09:00 Metoprolol Succinate (Toprol Xl) 25 mg BID PO Last administered on 12/16/16 09 :02; Admin Dose 25 MG; Start 12/14/16 at 21:00 Enoxaparin Sodium (Lovenox) 40 mg DAILY SC Last administered on 12/16/16 09:11 ; Admin Dose 40 MG; Start 12/15/16 at 09:00 Morphine Sulfate (morphine) 2 mg Q2H PRN IV PAIN; Start 12/14/16 at 19:00 Acetaminophen/ Hydrocodone Bitart (Sage (5/325)) 1 tab Q3H PRN PO PAIN Last administered on 12/15/16 20:49; Admin Dose 1 TAB; Start 12/14/16 at 19:00 Mupirocin (Bactroban) 1 applic BID TOP Last administered on 12/16/16 09:01; Admin Dose 1 APPLIC; Start 12/15/16 at 21:00 STEPHANIE BROWNLEE Dec 16, 2016 11:48
[2016-12-16] MEDS ORDERED: FUROSEMIDE 20 MG INJ IV ONE (12:00)
--- NOTE | 2016-12-16 13:44 | RADRPT ---
PROCEDURE: Lexiscan myocardial perfusion study CLINICAL INDICATION: 86 -year-old patient complaining of chest pain. TECHNIQUE: Lexiscan 0.4 mg intravenously separate acquisition gated myocardial perfusion SPECT usi ng Tc 99m Myoview 30.6 mCi intravenously at stress and Tc-99m Myoview, 7.7 mCi intravenously at rest was performed using the rest/stress sequence. Poststress Myoview SPECT images were obtained in the supine position. COMPARISON: No prior studies. FINDINGS: Perfusion images reveal a small to moderate size moderate in degree nonreversible perfusion defect i n the inferior and inferoseptal arreaga. Lexiscan post stress gated SPECT images demonstrate mild hypokinesis of the left ventricle. IMPRESSION: 1. No evidence of stress-induced ischemia. 2. Mild hypokinesis of the left ventricle. 3. The left ventricle ejection fraction at stress is 43%. A call report was made to Dr. Shay at 01:30 p.m. on December 13, 2016. RPTAT: HH .Judy Saldaña MD, Date Time Electronically viewed and signed by .Judy Saldaña MD, MD on 12/13/2016 13:34 .L/
[2016-12-16] MEDS: HYDROCODONE/APAP (5/325) TAB PO PRN ×2 (15:55→20:22)
[2016-12-17] VITALS (9 sets, daily range): BP systolic 118–151; BP diastolic 57–68; PULSE 60–67; RESP 16–20
[2016-12-17 06:38] LABS: ADD SCAN DIFF NO
[2016-12-17 06:55] LABS: BASOPHILS % 0.5 % (0.0-2.0); EOSINOPHILS # 0.3 10^3/ul (0.0-0.5); EOSINOPHILS % 5.3 % (0.0-7.0); HEMOGLOBIN 12.5 g/dl (14.0-18.0); LYMPHOCYTES # 1.5 10^3/ul (0.8-2.9); LYMPHOCYTES % 24.9 % (15.0-51.0); MEAN CORPUSCULAR HEMOGLOBIN 28.2 pg (29.0-33.0); MEAN CORPUSCULAR HGB CONC 32.1 g/dl (32.0-37.0); MEAN CORPUSCULAR VOLUME 87.8 fl (82.0-101.0); MEAN PLATELET VOLUME 10.3 fl (7.4-10.4); MONOCYTE # 0.7 10^3/ul (0.3-0.9); MONOCYTES % 10.8 % (0.0-11.0); NEUTROPHIL # 3.6 10^3/ul (1.6-7.5); PLATELET COUNT 181 10^3/UL (140-415); RED BLOOD COUNT 4.44 10^6/ul (4.70-6.10); RED CELL DISTRIBUTION WIDTH 14.5 % (11.5-14.5); WHITE BLOOD COUNT 6.2 10^3/ul (4.8-10.8)
[2016-12-17 07:07] LABS: CALCIUM 9.4 mg/dl (8.4-10.2); CREATININE 0.71 mg/dl (0.61-1.24); POTASSIUM 4.3 mmol/L (3.5-5.1)
--- NOTE | 2016-12-17 07:33 | PN ---
DATE: 12/16/2016 SUBJECTIVE: Patient has minimal pain in his left elbow. No chest pain or shortness of breath. PHYSICAL EXAMINATION: VITAL SIGNS: Temperature 98.2, blood pressure 126/56, O2 sats 96% on 2 liters nasal cannula. HEENT: No pallor, cyanosis, or icterus. CHEST: Clear. Decreased breath sounds at bases. HEART: S1, S2 with no definite gallops. EXTREMITIES: No edema. Homans negative. IMPRESSION: 1. Status post open reduction and internal fixation of the fracture of the olecranon process of the left elbow. 2. Cardiac arrhythmia with PVCs. 3. Cardiomyopathy. 4. Status post automatic implantable cardioverter-defibrillator. 5. Hyperlipidemia. 6. Increased troponins with no evidence of acute myocardial infarction. PLAN: Will observe for 24 hours and if stable and if okay with Dr. Shetty and Dr. Shay discharge to [place]. We will repeat labs in a.m. including magnesium and potassium. Dictated By: LISHA STEARNS MD, SR/MITZY Conf#: [id number] DID#: [id number]
--- NOTE | 2016-12-17 08:02 | PN ---
DATE: 12/14/2016 SUBJECTIVE: The patient has a mild productive cough. Denies any chest pain. No shortness of breat h. PHYSICAL EXAMINATION: VITAL SIGNS: The patient is afebrile, blood pressure 161/75. CHEST: Decreased breath sounds at the bases. HEART: S1, S2, with no definite gallops. EXTREMITIES: No edema. LABORATORY: WBC count 5.3, hematocrit 37.7. Sodium 134, potassium 4.3. IMPRESSION: 1. Left elbow fracture for open reduction internal fixation. 2. Cardiomyopathy, with decreased LVF. 3. History of sick sinus syndrome, status post automatic implantable cardioverter-defibrillator. 4. Hypothyroidism. 5. Hyperlipidemia. 6. Underlying chronic obstructive pulmonary disease. The patient has been cleared from a cardiac standpoint with Dr. Shay. Will proceed with surgery per Dr. Shetty. Dictated By: LISHA STEARNS MD, SR/MITZY Conf#: [id number] DID#: [id number]
[2016-12-17] MEDS: ENOXAPARIN 40 MG/0.4 ML SYG SC SCH (09:08)
[2016-12-17] MEDS: LISINOPRIL 5 MG TAB PO SCH (09:09)
[2016-12-17] MEDS: MUPIROCIN 2% 22 GM OINT TOP SCH (09:10)
[2016-12-17] MEDS: METOPROLOL (XL) 25 MG TAB PO SCH (09:10)
--- NOTE | 2016-12-17 15:43 | CONS ---
Date/Time of Note Date/Time of Note DATE: 12/17/16 TIME: 15:41 Assessment/Plan Assessment/Plan Chief Complaint/Hosp Course IMPRESSION: 1. Preoperative evaluation prior to revision of a prior elbow fracture surgery in a patient with history of cardiomyopathy, premature ventricular contractions in EKG, automatic implantable cardioverter-defibrillator.-Lexiscan 12/13/16 NO ischemia EF 43%, Echo EF 35-40% but no sig contraindicated valvular lesion. Thus patient is ok to proceed at moderate risk without further non-invasive evaluation on current medications continued pre-post operatively 2. Abnormal electrocardiogram with premature ventricular contractions. 3. History of cardiomyopathy, decreased left ventricular ejection fraction. 4. History of automatic implantable cardioverter-defibrillator placement. 5. Elbow fracture. 6. Hypothyroidism. 7. Dyslipidemia. 8.Positive troponin-minimal and now downtrended-? ischemia are marker of chronic cardiomyopathy 9.SVT-recurrent overnight to 120's-no recurrence in last 72 hours since increase in BB 10.HTN-well controlled Recc: -Tele -Continue toprol XL/ACEI -Volume status closely with spot dose lasix as necessary -Routine post-op care -D/C planning with outpatient cardiology f/u 2 weeks Problems: Consultation Date/Type/Reason Admit Date/Time Dec 12, 2016 at 11:09 Initial Consult Date 12/12/2016 Type of Consultation: Cardiology Reason for Consultation cardiomyopathy Referring Provider: LISHA STEARNS MD Exam/Review of Systems Vital Signs Vitals Vital Signs Date Time Temp Pulse Resp B/P Pulse Ox O2 Delivery O2 Flow Rate FiO2 12/17/16 12:13 65 12/17/16 11:09 98.6 18 127/68 97 12/17/16 08:20 Nasal Cannula 2.0 Intake and Output 12/16/16 12/16/16 12/17/16 15:00 23:00 07:00 Intake Total 550 ml 400 ml Output Total 800 ml Balance 550 ml -400 ml Exam Review of Systems: CONSTITUTIONAL: No fevers, chills. PULMONARY: No sob CARDIOVASCULAR: No chest pain/palpitations GASTROINTESTINAL: No nausea/vomiting. GENITOURINARY: No hematuria/dysuria. MUSCULOSKELETAL: No myagias/arthalgias. PSYCHIATRIC: The patient denies depression. NEUROLOGIC: No weakness Constitutional: alert Psych: no complaints Head: normocephalic ENMT: mucosa pink and moist Neck: jvd, supple Respiratory: diminished breath sounds (at bases/B) Cardiovascular: regular rate and rhythm Gastrointestinal: non-tender, soft Musculoskeletal: other (arm covered by dressing) Extremities: edema (none) Neurological: other (No focal deficits) Results Result Diagram: 12/17/16 0545 12/17/16 0545 Results 24 hrs Laboratory Tests Test 12/17/16 05:45 White Blood Count 6.2 Red Blood Count 4.44 L Hemoglobin 12.5 L Hematocrit 39.0 L Mean Corpuscular Volume 87.8 Mean Corpuscular Hemoglobin 28.2 L Mean Corpuscular Hemoglobin Concent 32.1 Red Cell Distribution Width 14.5 Platelet Count 181 Mean Platelet Volume 10.3 Neutrophils % 58.0 Lymphocytes % 24.9 Monocytes % 10.8 Eosinophils % 5.3 Basophils % 0.5 Nucleated Red Blood Cells % 0.0 Neutrophils # 3.6 Lymphocytes # 1.5 Monocytes # 0.7 Eosinophils # 0.3 Basophils # 0.0 Nucleated Red Blood Cells # 0.0 Sodium Level 138 Potassium Level 4.3 Chloride Level 102 Carbon Dioxide Level 28 Anion Gap 12 Blood Urea Nitrogen 20 Creatinine 0.71 Glucose Level 85 Calcium Level 9.4 Magnesium Level 2.0 Medications Medications Current Medications Lisinopril (Zestril) 5 mg DAILY PO Last administered on 12/17/16 09:09; Admin Dose 5 MG; Start 12/14/16 at 09:00 Metoprolol Succinate (Toprol Xl) 25 mg BID PO Last administered on 12/17/16 09 :10; Admin Dose 25 MG; Start 12/14/16 at 21:00 Mupirocin (Bactroban) 1 applic BID TOP Last administered on 12/17/16 09:10; Admin Dose 1 APPLIC; Start 12/15/16 at 21:00 STEPHANIE BROWNLEE Dec 17, 2016 15:43
--- NOTE | 2016-12-17 21:36 | DS ---
DATE OF ADMISSION: 12/12/2016 DATE OF DISCHARGE: 12/17/2016 FINAL DIAGNOSES: 1. Status post left femoral fracture status post open reduction internal fixation. 2. Increased troponins with no evidence of acute myocardial infarction. 3. Cardiomyopathy with decreased left ventricular function. 4. History of sick sinus syndrome, status post automatic implantable cardioverter defibrillator ele cement. 5. Hypothyroidism. 6. Hyperlipidemia. 7. History of chronic obstructive pulmonary disease. HOSPITAL COURSE: The patient is an 86-year-old gentleman presenting with left femoral fracture, see n by Dr. Shetty from orthopedic standpoint, has had prior surgery and the fracture fragments had shifte d and repeat surgery had to be done. The patient was seen in the emergency room and was admitted. Initially his troponin came back 0.012, which went up to 0.63 on 12/12, which trended gradually down the next day to 0.278. The patient was seen by Dr. Shay from cardiac standpoint whose impressio n was there was no evidence of acute myocardial infarction. However, the concern for acute coronary syndrome in anticipation of upcoming surgery, the patient underwent a Lexiscan. It showed no ST-T wave changes and patient was cleared for surgery per Dr. Shetty. The patient underwent operative reduc tion internal fixation by Dr. Shetty. Postoperative course was uneventful. The patient was discharged back to the convalescent home in much improved condition to continue occupational therapy at the co nvalescent home. DISCHARGE MEDICATIONS: Included: 1. Lisinopril 5 mg p.o. daily. 2. Metoprolol 25 mg p.o. b.i.d. 3. Atorvastatin 40 mg p.o. daily. 4. Levothyroxine 88 mcg p.o. daily. 5. Tamsulosin 0.4 mg p.o. at bedtime. Dictated By: LISHA STEARNS MD, SR/NTS Conf#: [id number] DID#: [id number]
== END 2016-12-17 18:36 | DRG 496 ==
LOC: E/R 11:38 → MS2 11:48 → OBSVTOIN 12-12 11:09 → TEL 12-12 16:00
PROVIDERS: ADMIT Internal Medicine; ATTEND Internal Medicine
PROC: 0PPL04Z Removal of Internal Fixation Device from Left Ulna, Open Approach (ICD-10-PCS; 2016-12-14)
PROC: 0PSL04Z Reposition Left Ulna with Internal Fixation Device, Open Approach (ICD-10-PCS; principal; 2016-12-14 15:30)
DX: S52.022K Displaced fracture of olecranon process without intraarticular extension of left ulna, subsequent encounter for closed fracture with nonunion (principal); I47.1 Supraventricular tachycardia; J44.9 Chronic obstructive pulmonary disease, unspecified; I11.9 Hypertensive heart disease without heart failure; E83.42 Hypomagnesemia; E03.9 Hypothyroidism, unspecified; E78.5 Hyperlipidemia, unspecified; X58.XXXD Exposure to other specified factors, subsequent encounter; Z95.810 Presence of automatic (implantable) cardiac defibrillator; Z87.891 Personal history of nicotine dependence
CPT/HCPCS: 36415; 71010; 73070; 78452; 80048; 80061; 82962; 83735; 84436; 84443; 84484; 85025; 85610; 85730; 86850; 86900; 86901; 86920; 87081; 93005; 93017; 93306; 96374; 96375; 96376; 97167; J1940; A9500; A9505; G0378; J0360; J0690; J1100; J1644; J1650; J2175; J2270; J2370; J2405; J2785; J2795; J3010; J3475; J3480